=== PATIENT | female | born 1985 | race Caucasian/White ===

== ENCOUNTER → 2017-07-31 09:59 | Outpatient (CLI) | payer MEDICAID, SELFPAY ==
[2017-07-31 11:05] LABS: Protein, Urine (Random) 18.2 mg/dL (<11.9)
[2017-07-31 12:34] LABS: Hematocrit 35.3 % (37-47); Hemoglobin 12.1 g/dl (12.0-15.0); Mean Corp Hgb Conc 34.3 g/gl (32-36); Mean Corpuscular Hgb 30.2 pg (27.0-32.0); Mean Platelet Vol. 9.9 fl (6.2-12.0); Platelet Count 388 K/mm3 (150-450); RBC Distribution Width CV 13.6 % (11.6-14.6); RBC Distribution Width SD 42.2 fl (35.1-43.9); Red Blood Count 4.01 M/mm3 (4.2-5.4); White Blood Count 12.8 K/mm3 (4.4-11.0)
[2017-07-31 12:40] LABS: Scan Indicated on CBC? Y/N NO
[2017-07-31 12:48] LABS: ALB/GLOB Ratio 0.6 RATIO (0.9-2.4); AST(SGOT) 9 U/L (15-37); Alanine Aminotransfer ALT/SGPT 13 U/L (13-56); Albumin, Serum 2.9 g/dL (3.2-5.0); Alkaline Phosphatase 92 U/L (45-117); Anion Gap 9 (5-15); BUN 7 mg/dL (7-18); BUN/Creat Ratio 18.2 RATIO (10-20); Calcium,Total 8.5 mg/dL (8.5-10.1); Chloride 104 mmol/L (98-107); Creatinine, Serum 0.38 mg/dL (0.55-1.02); EST Glomerular Filtration Rate 204 mL/min (>60); Est Glom Filt Rate - Afr Amer 247 mL/min (>60); Globulin 4.5 g/dL (2.2-4.2); Glucose 83 mg/dL (70-110); Protein, Total 7.4 g/dL (6.4-8.2); Sodium Level 136 mmol/L (136-145); Uric Acid 3.6 mg/dL (2.6-6.0)
== END ==
PROVIDERS: Visit Provider Obstetrics & Gynecology
DX: Z34.82 Encounter for supervision of other normal pregnancy, second trimester (principal)
CPT/HCPCS: 36415; 80053; 82570; 84156; 84550; 85027

== ENCOUNTER → 2017-08-07 13:27 | Outpatient (CLI) | payer MEDICAID, SELFPAY ==
[2017-08-07 15:51] LABS: Hematocrit 35.7 % (37-47); Hemoglobin 12.1 g/dl (12.0-15.0); Mean Corp Hgb Conc 33.9 g/gl (32-36); Mean Corpuscular Hgb 29.9 pg (27.0-32.0); Mean Corpuscular Volume 88.1 fL (81-99); Mean Platelet Vol. 9.7 fl (6.2-12.0); Platelet Count 401 K/mm3 (150-450); RBC Distribution Width CV 13.4 % (11.6-14.6); RBC Distribution Width SD 42.4 fl (35.1-43.9); Red Blood Count 4.05 M/mm3 (4.2-5.4); White Blood Count 13.1 K/mm3 (4.4-11.0)
[2017-08-07 15:52] LABS: Scan Indicated on CBC? Y/N NO
[2017-08-07 16:04] LABS: ALB/GLOB Ratio 0.6 RATIO (0.9-2.4); AST(SGOT) 9 U/L (15-37); Alanine Aminotransfer ALT/SGPT 12 U/L (13-56); Albumin, Serum 2.9 g/dL (3.2-5.0); Alkaline Phosphatase 95 U/L (45-117); Anion Gap 7 (5-15); BUN 8 mg/dL (7-18); BUN/Creat Ratio 16.2 RATIO (10-20); Calcium,Total 8.7 mg/dL (8.5-10.1); Chloride 106 mmol/L (98-107); Creatinine, Serum 0.49 mg/dL (0.55-1.02); EST Glomerular Filtration Rate 153 mL/min (>60); Est Glom Filt Rate - Afr Amer 185 mL/min (>60); Globulin 4.6 g/dL (2.2-4.2); Glucose 81 mg/dL (74-106); Potassium 4.1 mmol/L (3.5-5.1); Protein, Total 7.5 g/dL (6.4-8.2); Sodium Level 138 mmol/L (136-145); Uric Acid 3.6 mg/dL (2.6-6.0)
[2017-08-07 16:08] LABS: Protein, Urine (Random) 26.1 mg/dL (<11.9)
== END ==
PROVIDERS: Visit Provider Obstetrics & Gynecology
DX: O16.2 Unspecified maternal hypertension, second trimester (principal); Z3A.00 Weeks of gestation of pregnancy not specified
CPT/HCPCS: 80053; 82570; 84156; 84550; 85027

== ENCOUNTER → 2017-08-29 07:11 | Outpatient (CLI) | payer MEDICAID, SELFPAY ==
[2017-08-29 08:14] LABS: Glucose GTT-Gestation. Fasting 104 mg/dL (<105)
[2017-08-29 09:28] LABS: Glucose GTT-Gestational 1 Hr 195 mg/dL (<190)
[2017-08-29 11:03] LABS: Glucose GTT-Gestational 2 Hr 157 mg/dL (<165)
[2017-08-29 12:08] LABS: Glucose GTT-Gestational 3 Hr 124 L (<145)
== END ==
PROVIDERS: Family Provider Family Medicine; PCP Family Medicine; Visit Provider Obstetrics & Gynecology
DX: Z34.83 Encounter for supervision of other normal pregnancy, third trimester (principal)
CPT/HCPCS: 36415; 82951; 82952

== ENCOUNTER → 2017-08-29 16:17 | Outpatient (CLI) | payer MEDICAID, SELFPAY ==
[2017-08-29 17:43] LABS: Hematocrit 32.8 % (37-47); Mean Corp Hgb Conc 33.5 g/gl (32-36); Mean Corpuscular Hgb 29.6 pg (27.0-32.0); Mean Corpuscular Volume 88.2 fL (81-99); Mean Platelet Vol. 9.3 fl (6.2-12.0); Platelet Count 376 K/mm3 (150-450); RBC Distribution Width CV 13.6 % (11.6-14.6); RBC Distribution Width SD 43.6 fl (35.1-43.9); Red Blood Count 3.72 M/mm3 (4.2-5.4); Scan Indicated on CBC? Y/N NO; White Blood Count 11.8 K/mm3 (4.4-11.0)
[2017-08-29 17:56] LABS: ALB/GLOB Ratio 0.6 RATIO (0.9-2.4); AST(SGOT) 7 U/L (15-37); Alanine Aminotransfer ALT/SGPT 13 U/L (13-56); Albumin, Serum 2.6 g/dL (3.2-5.0); Alkaline Phosphatase 94 U/L (45-117); Anion Gap 10 (5-15); BUN 10 mg/dL (7-18); BUN/Creat Ratio 17.8 RATIO (10-20); Calcium,Total 8.6 mg/dL (8.5-10.1); Chloride 107 mmol/L (98-107); Creatinine, Serum 0.56 mg/dL (0.55-1.02); EST Glomerular Filtration Rate 132 mL/min (>60); Est Glom Filt Rate - Afr Amer 159 mL/min (>60); Globulin 4.3 g/dL (2.2-4.2); Glucose 132 mg/dL (74-106); Potassium 4.1 mmol/L (3.5-5.1); Protein, Total 6.9 g/dL (6.4-8.2); Sodium Level 139 mmol/L (136-145); Uric Acid 3.9 mg/dL (2.6-6.0)
[2017-08-29 18:02] LABS: Protein, Urine (Random) 26.7 mg/dL (<11.9)
== END ==
PROVIDERS: Visit Provider Obstetrics & Gynecology
DX: O13.3 Gestational [pregnancy-induced] hypertension without significant proteinuria, third trimester (principal); Z3A.00 Weeks of gestation of pregnancy not specified
CPT/HCPCS: 36415; 80053; 82570; 82951; 82952; 84156; 84550; 85027

== ENCOUNTER 2017-09-11 10:15 | Outpatient (CLI) | payer MEDICAID, SELFPAY ==
[2017-09-11 10:35] VITALS: BMI 40.5
--- NOTE | 2017-09-12 18:13 | OB.TRI.NOTE ---
History of Present Illness Date of Service: 09/11/17 Was patient seen by the physician?: No Reason For Visit: NST Date of Service: 09/11/17 Final MICHAEL: 11/09/17 Final MICHAEL Source: US <20 weeks Gestational age: 31 Weeks and 4 Days History of Present Illness: 32yo for scheduled NST for h/o chronic hypertension Home Medications Medication Instructions Recorded NIFEdipine [Procardia XL] 90 mg PO DAILY 09/11/17 Pnv No.122/Iron/Folic Acid 1 each PO 09/11/17 [ Multi Tablet] Sertraline HCl [Zoloft] 09/11/17 Allergies amoxicillin [Amoxicillin] Allergy (Verified 09/11/17 10:44) Rash erythromycin base [Erythromycin Base] Allergy (Verified 09/11/17 10:44) Rash Penicillins Allergy (Verified 09/11/17 10:44) Rash - Pertinent Past Medical History Pertinent Past Medical History: Obesity Chronic HTN NST - FHR Rate Baby A Baseline: 130 Variability:: Moderate Accelerations:: 15 x 15 Decelerations:: None NST Reactive:: Yes FHR Category:: Category I Uterine Activity:: 0/10 Impression/Plan 32yo with chronic HTN @ 31 5/7wga, Cat I FHR -d/c home
== END 2017-09-11 11:20 | disposition home or self-care (01) ==
LOC: WPOUT 10:26 → WP 10:28
PROVIDERS: Family Provider Family Medicine; PCP Family Medicine; Visit Provider Obstetrics & Gynecology
DX: O10.913 Unspecified pre-existing hypertension complicating pregnancy, third trimester (principal); Z3A.31 31 weeks gestation of pregnancy
CPT/HCPCS: 59025

== ENCOUNTER → 2017-09-28 13:13 | Outpatient (CLI) | payer MEDICAID, SELFPAY ==
[2017-09-28 13:50] LABS: Hematocrit 35.4 % (37-47); Hemoglobin 11.7 g/dl (12.0-15.0); Mean Corp Hgb Conc 33.1 g/gl (32-36); Mean Corpuscular Hgb 29.3 pg (27.0-32.0); Mean Corpuscular Volume 88.5 fL (81-99); Mean Platelet Vol. 9.7 fl (6.2-12.0); Platelet Count 381 K/mm3 (150-450); RBC Distribution Width CV 13.9 % (11.6-14.6); RBC Distribution Width SD 43.9 fl (35.1-43.9); Scan Indicated on CBC? Y/N NO; White Blood Count 11.7 K/mm3 (4.4-11.0)
[2017-09-28 14:05] LABS: ALB/GLOB Ratio 0.6 RATIO (0.9-2.4); AST(SGOT) 9 U/L (15-37); Alanine Aminotransfer ALT/SGPT 12 U/L (13-56); Albumin, Serum 2.6 g/dL (3.2-5.0); Alkaline Phosphatase 116 U/L (45-117); Anion Gap 8 (5-15); BUN 10 mg/dL (7-18); Calcium,Total 8.8 mg/dL (8.5-10.1); Chloride 104 mmol/L (98-107); Creatinine, Serum 0.42 mg/dL (0.55-1.02); EST Glomerular Filtration Rate 186 mL/min (>60); Est Glom Filt Rate - Afr Amer 225 mL/min (>60); Globulin 4.6 g/dL (2.2-4.2); Glucose 88 mg/dL (74-106); Protein, Total 7.2 g/dL (6.4-8.2); Sodium Level 136 mmol/L (136-145); Uric Acid 4.1 mg/dL (2.6-6.0)
[2017-09-28 14:09] LABS: Protein, Urine (Random) 29.5 mg/dL (<11.9)
== END ==
PROVIDERS: Family Provider Family Medicine; PCP Family Medicine; Visit Provider Obstetrics & Gynecology
DX: O13.3 Gestational [pregnancy-induced] hypertension without significant proteinuria, third trimester (principal); Z3A.00 Weeks of gestation of pregnancy not specified
CPT/HCPCS: 36415; 80053; 82570; 84156; 84550; 85027; 87086; 87088

== ENCOUNTER 2017-10-12 14:37 | Outpatient (CLI) | payer MEDICAID, SELFPAY ==
[2017-10-12 15:10] LABS: ROM Internal Control Test YES-OK TO RESULT pt. (Internal QC); ROM Patient Test Negative (Negative)
[2017-10-12 15:45] LABS: Hematocrit 34.9 % (37-47); Hemoglobin 11.5 g/dl (12.0-15.0); Mean Corpuscular Volume 87.9 fL (81-99); Mean Platelet Vol. 9.4 fl (6.2-12.0); Platelet Count 408 K/mm3 (150-450); RBC Distribution Width CV 13.9 % (11.6-14.6); RBC Distribution Width SD 43.9 fl (35.1-43.9); Red Blood Count 3.97 M/mm3 (4.2-5.4); White Blood Count 11.6 K/mm3 (4.4-11.0)
[2017-10-12 15:46] VITALS: BMI 42.3
[2017-10-12 15:46] LABS: Scan Indicated on CBC? Y/N NO
[2017-10-12 16:00] LABS: AST(SGOT) 8 U/L (15-37); Alanine Aminotransfer ALT/SGPT 9 U/L (13-56); EST Glomerular Filtration Rate 150 mL/min (>60); Est Glom Filt Rate - Afr Amer 181 mL/min (>60); Estimated Creatinine Clearance 149.81 ml/min; Uric Acid 3.9 mg/dL (2.6-6.0)
[2017-10-12 16:01] LABS: International Normalized Ratio 1.1; Prothrombin Time (Protime)PT. 13.8 SECONDS (11.7-14.9)
[2017-10-12 16:01] LABS: Group B Strep DNA By PCR POSITIVE (Negative); Probe Check PASS
[2017-10-12 16:02] LABS: Partial Thromboplast Time 29.9 Seconds (24.1-36.2)
[2017-10-12 16:53] LABS: Protein, Urine (Random) 16.1 mg/dL (<11.9); Protein:Creat Ratio 202 mg/g CRE (0-200)
[2017-10-12] MEDS: Labetalol 200 MG Tablet 400 MG PO (18:17)
[2017-10-12] MEDS: Betamethasone/Betamethasone 30 MG/5 ML Vial 12 MG IM (18:18)
--- NOTE | 2017-10-12 18:39 | OB.TRI.NOTE ---
History of Present Illness Date of Service: 10/12/17 Was patient seen by the physician?: Yes Reason For Visit: [facility] Final MICHAEL: 11/09/17 Final MICHAEL Source: US <20 weeks Gestational age: 36 Weeks and 0 Days History of Present Illness: 32yo at 36wga with h/o chronic hypertension and obesity, sent from the office for elevated BP. She reports mild headache and notes this occurs with elevated BPs. Denies vision changes, RUQ or abdominal pain. + FM, no vaginal bleeding. + cramping. She reported leaking of fluid in office and ROM plus was sent. Home Medications Medication Instructions Recorded NIFEdipine [Procardia XL] 90 mg PO DAILY 09/11/17 Pnv No.122/Iron/Folic Acid 1 each PO DAILY 09/11/17 [ Multi Tablet] Sertraline HCl [Zoloft] 75 mg PO DAILY 09/11/17 Allergies amoxicillin [Amoxicillin] Allergy (Verified 10/12/17 15:45) Rash erythromycin base [Erythromycin Base] Allergy (Verified 10/12/17 15:45) Rash Penicillins Allergy (Verified 10/12/17 15:45) Rash - Pertinent Past Medical History Pertinent Past Medical History: chronic HTN Obesity Physical Exam General: Alert, Oriented x3, Cooperative, No apparent distress Cardiovascular: Regular rate, Regular Rhythm Lungs: Normal air movement Abdomen: Soft, Non Tender, Non-Distended, Gravid Extremities:: No edema, Other - +2 b/l DTRs, no clonus Estimated gestational size: Appropriate for gestational size Presentation: Breech NST - FHR Rate Baby A Baseline: 135 Variability:: Moderate Accelerations:: 15 x 15 Decelerations:: None NST Reactive:: Yes FHR Category:: Category I Uterine Activity:: irritability Impression/Plan 32yo at 36wga with chronic HTN -Labs reviewed and not c/w preeclampsia - suspect worsening HTN. -Increase Labetalol to 400mg PO bid -Start BMZ course for FLM should there be evidence of preeclampsia -APAP prn
[2017-10-12 18:50] LABS: Chlamydia Trachomatis by PCR Negative (Negative); Neisserai gonorrhoeae by PCR Negative (Negative); Probe Check PASS; Sample Adequacy Control PASS; Specimen Processing Control PASS
--- NOTE | 2017-10-12 18:56 | OB.TRI.HP_ITS ---
History of Present Illness Date of Service: 10/12/17 Was patient seen by the physician?: Yes Reason For Visit: [facility] Final MICHAEL: 11/09/17 Final MICHAEL Source: US <20 weeks Gestational age: 36 Weeks and 0 Days History of Present Illness: 32yo at 36wga with h/o chronic hypertension and obesity, sent from the office for elevated BP. She reports mild headache and notes this occurs with elevated BPs. Denies vision changes, RUQ or abdominal pain. + FM, no vaginal bleeding. + cramping. She reported leaking of fluid in office and ROM plus was sent. Home Medications Medication Instructions Recorded NIFEdipine [Procardia XL] 90 mg PO DAILY 09/11/17 Pnv No.122/Iron/Folic Acid 1 each PO DAILY 09/11/17 [ Multi Tablet] Sertraline HCl [Zoloft] 75 mg PO DAILY 09/11/17 Allergies amoxicillin [Amoxicillin] Allergy (Verified 10/12/17 15:45) Rash erythromycin base [Erythromycin Base] Allergy (Verified 10/12/17 15:45) Rash Penicillins Allergy (Verified 10/12/17 15:45) Rash - Pertinent Past Medical History Pertinent Past Medical History: chronic HTN Obesity Physical Exam General: Alert, Oriented x3, Cooperative, No apparent distress Cardiovascular: Regular rate, Regular Rhythm Lungs: Normal air movement Abdomen: Soft, Non Tender, Non-Distended, Gravid Extremities:: No edema, Other - +2 b/l DTRs, no clonus Estimated gestational size: Appropriate for gestational size Presentation: Breech NST - FHR Rate Baby A Baseline: 135 Variability:: Moderate Accelerations:: 15 x 15 Decelerations:: None NST Reactive:: Yes FHR Category:: Category I Uterine Activity:: irritability Impression/Plan 32yo at 36wga with chronic HTN -Labs reviewed and not c/w preeclampsia - suspect worsening HTN. -Increase Labetalol to 400mg PO bid -Start BMZ course for FLM should there be evidence of preeclampsia -APAP prn
[2017-10-12] MEDS: 0.9% Saline Lock 10 ML Syringe IV (19:00)
[2017-10-12] MEDS: Acetaminophen 325 MG Tablet 650 MG PO (21:40)
[2017-10-13] MEDS: Acetaminophen 325 MG Tablet 650 MG PO (05:42)
[2017-10-13] MEDS: 0.9% Saline Lock 10 ML Syringe IV (05:43)
[2017-10-13] MEDS: Labetalol 200 MG Tablet PO (06:16)
--- NOTE | 2017-10-13 07:58 | OB.TRI.PN ---
Progress Notes Date of Service: 10/13/17 Progress Note: Denies headache, vision changes or abdominal pain. She has intermittent cramping again. Denies contractions. Fetus is active. No leaking of fluid or vaginal bleeding. AVSS, BPs reviewed and at target given h/o chronic hypertension. NST reactive this am, Cat I. Will d/c home this am with plan for Labetalol 200mg PO tid, continue Nifedipine XL. Return this evening for second dose of betamethasone. Si/sx preeclampsia reviewed. Plan to f/u in office early next week, pt to continue home BP monitoring.
--- NOTE | 2017-10-13 08:03 | PCM.DC ---
- Discharge Diagnoses Current Active Problems: Chronic hypertension Reason(s) for Visit for Discharge Instructions: Chronic hypertension exacerbation in You will use the following diet at home:: No restrictions Your food should be the consistency of: Regular Discharge Activity: Return to Normal Activity Call your doctor if you observe: - - Persistent headache, vision changes, Right upper abdominal pain Allergies/Adverse Reactions: Allergies amoxicillin [Amoxicillin] Allergy (Verified 10/12/17 15:45) Rash erythromycin base [Erythromycin Base] Allergy (Verified 10/12/17 15:45) Rash Penicillins Allergy (Verified 10/12/17 15:45) Rash Medications to take at Discharge NIFEdipine [Procardia XL] 90 mg PO DAILY 09/11/17 Pnv No.122/Iron/Folic Acid [ Multi Tablet] 1 each PO DAILY 09/11/17 Sertraline HCl [Zoloft] 75 mg PO DAILY 09/11/17 Labetalol [Trandate ([place])] 200 mg PO TID #42 tab 10/13/17 The following prescriptions were given: Labetalol [Trandate ([place])] 200 mg PO TID #42 tab Primary Care Physician: Care Physician,No Primary [Primary Care Provider] - Please Follow Up With: Deysi Arredondo MD - NST and visit in afternoon When: 10/17/17
== END 2017-10-13 08:10 | disposition home or self-care (01) ==
LOC: LABSPEC 14:38 → WPOUT 14:57 → WP 18:48
PROVIDERS: Visit Provider Obstetrics & Gynecology
DX: O10.913 Unspecified pre-existing hypertension complicating pregnancy, third trimester (principal); O32.1XX0 Maternal care for breech presentation, not applicable or unspecified; Z3A.36 36 weeks gestation of pregnancy
CPT/HCPCS: 36415; 59025; 59050; 82565; 82570; 84112; 84156; 84450; 84460; 84550; 85027; 85610; 85730; 87491; 87591; 87653; 96372; 99218; A4216; G0378; J0702

== ENCOUNTER 2017-10-13 18:02 | Outpatient (CLI) | payer MEDICAID, SELFPAY ==
[2017-10-13 18:14] VITALS: BMI 42.3
[2017-10-13] MEDS: Betamethasone/Betamethasone 30 MG/5 ML Vial 12 MG IM (18:25)
== END 2017-10-13 18:30 | disposition home or self-care (01) ==
LOC: WPOUT 18:12 → WP 18:13
PROVIDERS: Visit Provider Obstetrics & Gynecology
DX: O13.3 Gestational [pregnancy-induced] hypertension without significant proteinuria, third trimester (principal); Z3A.36 36 weeks gestation of pregnancy
CPT/HCPCS: 96372; 99218; G0378; J0702

== ENCOUNTER 2017-10-17 14:20 | Inpatient (IN) | payer MEDICAID, SELFPAY ==
[2017-10-17] VITALS (17 sets, daily range): BP systolic 133–162; BP diastolic 68–100; PULSE 82–103; RESP 16–20; TEMP 35.7–36.4; O2SAT 90–99; BMI 42.1
[2017-10-17] MEDS: 0.9% Saline Lock 10 ML Syringe IV (12:50)
[2017-10-17] MEDS: Lactated Ringers 1,000 ML 50 ML IV (13:20)
[2017-10-17 13:23] LABS: Mucous, Urine 0 SEEN /hpf (<or=2+); White Blood Cells 0 SEEN /hpf (0-5)
[2017-10-17] MEDS: Labetalol 100 MG/20 ML Vial 10 MG IV (13:25)
[2017-10-17 13:27] LABS: Hematocrit 35.8 % (37-47); Mean Corp Hgb Conc 33.5 g/gl (32-36); Mean Corpuscular Hgb 29.4 pg (27.0-32.0); Mean Corpuscular Volume 87.7 fL (81-99); Mean Platelet Vol. 9.6 fl (6.2-12.0); Platelet Count 413 K/mm3 (150-450); RBC Distribution Width SD 43.8 fl (35.1-43.9); Red Blood Count 4.08 M/mm3 (4.2-5.4); Scan Indicated on CBC? Y/N NO; White Blood Count 13.2 K/mm3 (4.4-11.0)
[2017-10-17 13:29] LABS: Color, Urine Yellow (Yellow); Glucose, Dipstick Normal (Normal); Ketone-Dipstick Negative (Negative); Leukocyte Esterase-Dipstick Negative /ul (Negative); Nitrite-Dipstick Negative (Negative); Occult Blood-Urine 10 /ul (Negative); Protein-Dipstick 15 mg/dl (Negative); Specific Gravity, Urine 1.015 (1.002-1.030); Urine Bilirubin Dipstick Negative (Negative); Urine Clarity Cloudy (Clear); Urine Urobilinogen Normal (Normal)
[2017-10-17 13:35] LABS: Bacteria 1+ /hpf (None Seen); Red Blood Cells-Urine 0-5 SEEN /hpf (0-5); Squamous Epithelial Cells - UA 5-10 SEEN /hpf (5-10)
[2017-10-17] MEDS: NIFEdipine 90 MG Tablet PO (13:35)
[2017-10-17 13:40] LABS: Protein, Urine (Random) 27.8 mg/dL (<11.9); Protein:Creat Ratio 447 mg/g CRE (0-200)
[2017-10-17 13:43] LABS: ALB/GLOB Ratio 0.6 RATIO (0.9-2.4); AST(SGOT) 10 U/L (15-37); Alanine Aminotransfer ALT/SGPT 14 U/L (13-56); Albumin, Serum 2.6 g/dL (3.2-5.0); Alkaline Phosphatase 113 U/L (45-117); Anion Gap 8 (5-15); BUN 9 mg/dL (7-18); BUN/Creat Ratio 18.6 RATIO (10-20); Calcium,Total 8.5 mg/dL (8.5-10.1); Chloride 105 mmol/L (98-107); Creatinine, Serum 0.48 mg/dL (0.55-1.02); EST Glomerular Filtration Rate 157 mL/min (>60); Est Glom Filt Rate - Afr Amer 189 mL/min (>60); Estimated Creatinine Clearance 156.06 ml/min; Globulin 4.4 g/dL (2.2-4.2); Glucose 77 mg/dL (74-106); Potassium 4.2 mmol/L (3.5-5.1); Sodium Level 139 mmol/L (136-145); Uric Acid 4.2 mg/dL (2.6-6.0)
[2017-10-17] MEDS: Labetalol 200 MG Tablet PO (13:51)
[2017-10-17] MEDS: Acetaminophen 325 MG Tablet 650 MG PO (14:59)
[2017-10-17] MEDS: Magnesium Sulfate 20 GM/500 ML BAG IV (15:20)
[2017-10-17] MEDS: Lactated Ringers 1,000 ML 999 ML IV (15:30)
[2017-10-17] MEDS: Sodium Citrate/Citric Acid 30 ML UDC PO (16:05)
[2017-10-17] MEDS: Clindamycin 900 MG/50 ML BAG 75 MG IV (16:25)
[2017-10-17] MEDS: Oxytocin 30 units/NS 500 ml 30 UNITS/500 ML IV.SOLN 167 UNITS IV (16:57)
[2017-10-17] MEDS: Ondansetron 4 MG/2 ML Vial IV (17:00)
[2017-10-17] MEDS: Lactated Ringers 1,000 ML 100 ML IV ×2 (18:00→21:29)
--- NOTE | 2017-10-17 18:04 | PCM.IMED.CSR ---
- Problem List (1) 36 weeks gestation of Status: Acute (2) Breech presentation Status: Acute Qualifiers: Fetus number: single or unspecified fetus Qualified Code(s): O32.1XX0 - Maternal care for breech presentation, not applicable or unspecified (3) Chronic hypertension with superimposed preeclampsia Status: Acute (4) Sterilization Status: Acute U-Dxymujg-Ilcdwllra PostOp Date of Procedure: 10/17/17 Primary Surgeon/Physician: Deysi Arredondo, cross cut saw operator: Gage Sharpe Pre-op Diagnosis: Breech, - - Chronic hypertension with superimposed preeclampsia Post-Op Diagnosis: Breech, - - Chronic hypertension with superimposed preeclampsia Surgery/Procedure Performed: Primary low transverse Section, - - Bilateral tubal ligation Description of Surgical Findings:: Normal tubes and ovaries with abundant filmy adhesions suggesting prior PID Estimated Blood Loss: 700 mL Specimens Removed: placenta, tubes Drain: Hernandez to straight drain Type of Anesthesia: Spinal - Admit VTE Documentation VTE Present on Admission: No VTE Mechan Device Prophylaxis: SCD's VTE Pharm Prophylaxis ordered?: No
--- NOTE | 2017-10-17 18:06 | PLAC_PTH ---
PATIENT: TAMEKA HODGE LOC: WP U#:[id number] AGE/SX: 32/F ROOM: WP009 RE10/17/[address]: Dr. Deysi Emanuel MD : 1985 BED: 1 DIS: 10/21/2017 SPEC #: [id number] RECD: 10/17/17 22:24 STATUS: MARIA FERNANDA RETramaine #: [id number] GEORGES: 10/17/17 18:[address]: Deysi Stein DEPT: SURGICAL PATHOLOGY RECD BY: Douglas Oconnor ENTERED: 10/18/17 09:25 SP TYPE: PLACENTA OTHR DR: No Primary Care Phys Tissues: A - Placenta, NOS B - Fallopian tube Procedures: Surgery Specimen Level II Surgery Specimen Level V HEADER OPERATION: Primary section with tubal ligation PRE-OP DIAGNOSIS: chronic hypertension with superimposed preeclampsia and tubal ligation TISSUE SUBMITTED: A. Placenta, B. Fallopian tubes MICROSCOPIC DIAGNOSIS A. Hamilton placenta (758 gm): Umbilical cord ? trivascular with early acute funisitis. Placental disc ? mild Jessica-Gerald change and intervillous congestion. B. Right and left fallopian tubes, salpingectomies: Complete segments of fallopian tubes with no pathologic change. AM:noemi 10/20/17 MICROSCOPIC DESCRIPTION Slides are reviewed. GROSS DESCRIPTION A - SPECIMEN: PLACENTA / CLINICAL INFORMATION: A. Weight: 3.167 kg B. Gestational Age: 36 weeks C. Sex: Male PLACENTAL WEIGHT (POST FIXATION): 598 gm PLACENTAL DIMENSIONS: 15 x 15 x 4.5 cm PLACENTAL SHAPE: Usual ovoid PLACENTAL WEIGHT FOR GESTATIONAL AGE: Within 10-99th percentile MEMBRANES - Present A. Insertion: Marginal B. Site of rupture from edge: 4 cm from edge of placental disc C. Color of membrane: Lainez-solis D. Abnormalities: None UMBILICAL CORD - Present A. Color: Lainez-solis B. Insertion: Paracentral C. Length: 29 cm D. Diameter: 1.5 cm E. Number of vessels: Three F. Abnormalities: None PLACENTAL DISC - Present A. Color of surface: Lainez-solis B. surface abnormalities: None C. Maternal cotyledons: Intact with minimal tears D. Attached retro placental clot: No clot E. Cut surface: Dark red and spongy F. Lesions: None G. Separate clot: Absent SECTIONS SUBMITTED: 1. Membrane roll 2. Cord, maternal end 3. Cord, end 4. Placental disc, and maternal surfaces 5. Placental disc, and maternal surfaces 6. Placental disc, and maternal surfaces SJ:noemi 10/19/17 B - Received is one container labeled with the patient's name and designated bilateral fallopian tubes. The specimen consists of two tubular pieces of lainez soft tissue consistent with portion of fallopian tubes. The right tube measures 2 cm in length and 0.5 cm in diameter and the left tube measures 2 cm in length and 0.7 cm in diameter. Both pieces are submitted in one cassette and they will be sectioned at the time of embedding. The left tube is inked black. The specimen will be submitted after overnight fixation along with placenta sections. / SJ:noemi 10/18/17 TC:2 CPT: 70771, 14967 x2
--- NOTE | 2017-10-17 18:09 | OP.PN_ITS ---
- Problem List (1) 36 weeks gestation of Status: Acute (2) Breech presentation Status: Acute Qualifiers: Fetus number: single or unspecified fetus Qualified Code(s): O32.1XX0 - Maternal care for breech presentation, not applicable or unspecified (3) Chronic hypertension with superimposed preeclampsia Status: Acute (4) Sterilization Status: Acute X-Tbjmnpa-Lfuommuat PostOp Date of Procedure: 10/17/17 Primary Surgeon/Physician: Deysi Arredondo, cooler deliverer: Gage Sharpe Pre-op Diagnosis: Breech, - - Chronic hypertension with superimposed preeclampsia Post-Op Diagnosis: Breech, - - Chronic hypertension with superimposed preeclampsia Surgery/Procedure Performed: Primary low transverse Section, - - Bilateral tubal ligation Description of Surgical Findings:: Normal tubes and ovaries with abundant filmy adhesions suggesting prior PID Estimated Blood Loss: 700 mL Specimens Removed: placenta, tubes Drain: Hernandez to straight drain Type of Anesthesia: Spinal - Admit VTE Documentation VTE Present on Admission: No VTE Mechan Device Prophylaxis: SCD's VTE Pharm Prophylaxis ordered?: No
--- NOTE | 2017-10-17 18:11 | PCM.OB.CSR ---
- Problem List (1) 36 weeks gestation of Status: Acute (2) Breech presentation Status: Acute Qualifiers: Fetus number: single or unspecified fetus Qualified Code(s): O32.1XX0 - Maternal care for breech presentation, not applicable or unspecified (3) Chronic hypertension with superimposed preeclampsia Status: Acute (4) Sterilization Status: Acute Delivery Classification: Scheduled Final MICHAEL: 11/08/17 Gestational age: 36 Weeks and 6 Days doctor who attended delivery (if requested by OB): Maki Evans Indications: The patient was taken to the operating room and spinal analgesia was administered. She is placed in a dorsal supine position with left lateral tilt. The perineum and abdomen were prepped and draped in sterile fashion. And the spinal was found to be adequate. A Pfannenstiel incision was made using a scalpel and brought down to incise the subcutaneous tissue and rectus fascia at the midline. Subcutaneous tissue was bluntly dissected off the fascia laterally. The fascial incision was dissected laterally and cephalad using curved [place] scissors. The superior leaflet of the rectus fascia was grasped using [place] clamps and bluntly dissected and sharply dissected from the underlying rectus muscle. In a similar fashion the inferior rectus fascia was dissected from the underlying muscle. The rectus muscles were bluntly at the midline. The peritoneum was identified and entered [sharply]. The bladder blade was placed into the abdomen and the vesicouterine peritoneal fold identified. The fold was incised and a bladder flap created. Bladder blade was then repositioned to the abdomen. A low transverse hysterotomy was made using the [Metzenbaum scissors] to level of the membranes. The hysterotomy was extended bluntly cephalad and caudad. The membranes were then ruptured revealing clear fluid. The breech elevated and brought to the level of the hysterotomy. Gentle bidirectional rotation was utilized to deliver the infant to the level of the shoulders at which time the right than left arms was swept through the hysterotomy. The head delivered spontaneously revealing vigorous [male] infant. The cord was doubly clamped and cut after 30 seconds. The infant was passed to awaiting [nursery personnel]. The placenta was [expressed] from the uterus and appeared intact on inspection. The uterus was cleared of debris. The hysterotomy was then repaired using 0 Vicryl running lock suture. The uterus was exteriorized. There were filmy adhesions over the tubes and ovaries bilaterally. Adhesiolysis was performed. The right ampullary tube was isolated and a defect created in the mesosalpinx. The proximal and distal portion of the tubes were tied using 0 plain gut at the defect. An approximately 2cm of intervening tube was excised. The tubal ostia were visualized. In similar fashion, a [place] tubal ligation was performed on the left. The uterus and adnexae were returned to the abdomen. Additional figure of eight 0 Vicryl suture was placed along the hysterotomy for additional hemostasis with hemostasis attained. The bladder blade was removed. The anterior cul-de-sac was cleared of debris. The peritoneum and rectus muscles were reapproximated using 2-0 Vicryl running suture. The rectus fascia was closed using 0 Vicryl running suture. The subcutaneous tissue was sponge irrigated and small capillary bleeding controlled using the Bovie device. The subcutaneous tissue was reapproximated using two layers of 2-0 Vicryl. The skin was closed using 4-0 Monocryl subcuticularly by the DIGITAL FORENSICS EXAMINER under my supervision. I was present for the entire procedure. This was followed by Tyler and a Mepilex occlusive dressing was placed over the incision. The fundus was firm. The patient was then transferred to the recovery room without complication. Sponge, instrument, and needle counts were correct ?2. Description of Procedure: Normal tubes and ovaries with abundant filmy adhesions suggesting prior PID Specimen(s) sent to pathology: placenta, tubes Drain: Hernandez to straight drain Fluids Replaced: 1550 ml Cord Entanglement: None Cord Vessel Description: 3 Vessels Esitmated Blood Loss (ml): 700 Gender: Male (1 minute): 7 (5 minute): 9 Delayed cord clamping: Yes Pre-op Antibiotic Given: - - Clindamycin 900mg IV, Gentamicina 5mg/kg (IBW) IV Pt instructed on risks of surgery: Bleeding, Anesthesia Risks, Infection, Permanency, Failure Rate of 1 to 2%, Injury to surrounding structure(s) including bowel and bladder, Availability of other non-permanent control options Complications: None - Admit VTE Documentation VTE Present on Admission: No VTE Mechan Device Prophylaxis: SCD's VTE Pharm Prophylaxis ordered?: No
--- NOTE | 2017-10-17 18:37 | NURSING ---
NC with 2L oxygen to use while resting as pulse ox 96-98% while awake
[2017-10-17] MEDS: Ketorolac 30 MG/ML Syringe IV (18:41)
--- NOTE | 2017-10-17 22:26 | PCM.PN.BLA ---
Progress Note Last few BPs more WNL. Pt very concerned re taking the 200 mg labetolol tid. Will observe BPs, and decrease Labetolol to 100 mg po tid for now.
[2017-10-17] MEDS: Labetalol 100 MG Tablet PO (23:13)
[2017-10-18] VITALS (21 sets, daily range): BP systolic 114–147; BP diastolic 57–87; PULSE 84–97; RESP 16–18; TEMP 35.8–36.6; O2SAT 92–98
[2017-10-18] MEDS: Ketorolac 30 MG/ML Syringe IV ×4 (00:06→18:53)
[2017-10-18] MEDS: Magnesium Sulfate 20 GM/500 ML BAG IV ×2 (01:30→11:21)
--- NOTE | 2017-10-18 01:41 | NURSING ---
IV Magnesium Sulfate d/c'd in error after pt transferred to . Confirmed with Dr Okeefe that Magnesium Sulfate infusion 2gm/hour to continue. Order placed. Magnesium Sulfate 20 gm in 500cc Dawson jimenez verified.
[2017-10-18] MEDS: Ondansetron 4 MG/2 ML Vial IV (04:16)
[2017-10-18] MEDS: Labetalol 100 MG Tablet PO ×3 (05:38→21:39)
--- NOTE | 2017-10-18 09:28 | PN.OBGYN_ITS ---
Patient Problems: Active and Suspected Problems 36 weeks gestation of (Acute) Breech presentation (Acute) Chronic hypertension with superimposed preeclampsia (Acute) Sterilization (Acute) Subjective: Has mild headache, denies nausea or vomiting or abdominal pain. Incision is sore. Passing flatus. Objective: AVSS - Physical Exam General: Alert, Oriented x3, Cooperative, No apparent distress HEENT: Atraumatic, Normocephalic Lungs: Clear to auscultation, Normal air movement Cardiovascular: Regular rate, Regular Rhythm, Normal S1, Normal S2 Abdomen: Bowel Sounds Present, Soft, Non Tender, Non-Distended, - - Difficulty assessing fundus due to body habitus, incisional dressing c/d/i, scant lochia Extremities: No edema, No Calf Tenderness Neurological: Deep Tendon Reflexes 2+/4 and Symmetrical Psych/Mental Status: Normal Affect, Appropriate, Alert and oriented to time, place, person, mood and affect Vital Signs Temp Pulse Resp BP Pulse Ox 97.2 F L 94 18 121/67 H 96 10/18/17 07:20 10/18/17 07:20 10/18/17 07:20 10/18/17 07:20 10/18/17 07:20 Oxygen Delivery Method Room Air Weight: 118.5 kg Body Mass Index (BMI) 42.1 Intake and Output for Last 24 Hours 10/16/17 10/17/17 10/18/17 23:59 23:59 23:59 Intake Total 5622 / 5622 922 / 922 Output Total 2700 / 2700 1025 / 1025 Balance 2922 / 2922 -103 / -103 Laboratory Tests Past 24 Hrs 10/17/17 10/17/17 10/17/17 12:50 12:50 12:50 WBC 13.2 H RBC 4.08 L Hgb 12.0 Hct 35.8 L MCV 87.7 MCH 29.4 MCHC 33.5 RDW 14.0 RDW Differential 43.8 Plt Count 413 MPV 9.6 Sodium 139 Potassium 4.2 Chloride 105 Carbon Dioxide 26.0 Anion Gap 8 BUN 9 Creatinine 0.48 L Estim Creat Clear Calc 156.06 Est GFR (MDRD) Af Amer 189 Est GFR (MDRD) Non-Af 157 BUN/Creatinine Ratio 18.6 Glucose 77 Uric Acid 4.2 Calcium 8.5 Total Bilirubin 0.20 AST 10 L ALT 14 Alkaline Phosphatase 113 Total Protein 7.0 Albumin 2.6 L Globulin 4.4 H Albumin/Globulin Ratio 0.6 L Urine Color Yellow Urine Clarity Cloudy Urine pH 8.0 Ur Specific [place] 1.015 Urine Protein 15 H Urine Glucose (UA) Normal Urine Ketones Negative Urine Occult Blood 10 H Urine Nitrite Negative Urine Bilirubin Negative Urine Urobilinogen Normal Ur Leukocyte Esterase Negative Urine RBC 0-5 SEEN Urine WBC 0 SEEN Ur Squamous Epith Cells 5-10 SEEN Urine Bacteria 1+ Urine Mucus 0 SEEN U Random Total Protein Urine Creatinine Protein/Creatinin Ratio Blood Type Antibody Screen 10/17/17 10/17/17 12:50 12:50 WBC RBC Hgb Hct MCV MCH MCHC RDW RDW Differential Plt Count MPV Sodium Potassium Chloride Carbon Dioxide Anion Gap BUN Creatinine Estim Creat Clear Calc Est GFR (MDRD) Af Amer Est GFR (MDRD) Non-Af BUN/Creatinine Ratio Glucose Uric Acid Calcium Total Bilirubin AST ALT Alkaline Phosphatase Total Protein Albumin Globulin Albumin/Globulin Ratio Urine Color Urine Clarity Urine pH Ur Specific [place] Urine Protein Urine Glucose (UA) Urine Ketones Urine Occult Blood Urine Nitrite Urine Bilirubin Urine Urobilinogen Ur Leukocyte Esterase Urine RBC Urine WBC Ur Squamous Epith Cells Urine Bacteria Urine Mucus U Random Total Protein 27.8 H Urine Creatinine 62.20 Protein/Creatinin Ratio 447 H Blood Type A POSITIVE Antibody Screen NEGATIVE Medical Necessity - Tobacco Use Smoking Status: Former smoker Assessment/Plan Active and Suspected Problems 36 weeks gestation of (Acute) Breech presentation (Acute) Chronic hypertension with superimposed preeclampsia (Acute) Sterilization (Acute) 32yo POD#1 s/p PLTCS with BTL with chronic HTN, superimposed preeclampsia. -Rh positive, Rubella immune -CBC pending, CMP, uric acid -Headache persists, pt attributes this to not eating prior and just finished breakfast, will observe. BPs improved since delivery. Will d/c Nifedipine, continue Labetalol 100mg PO tid. -Reviewed events yesterday. Discussed with patient diagnosis of cHTN with superimposed preeclampsia and indication of magnesium for seizure prophylaxis. Pt diuresing however given headache, will continue magnesium to 24 hours. -Routine post-op care
[2017-10-18] MEDS: Sertraline 50 MG Tablet 75 MG PO (09:44)
[2017-10-18 09:58] LABS: Hematocrit 33.6 % (37-47); Hemoglobin 11.1 g/dl (12.0-15.0); Mean Corpuscular Hgb 28.8 pg (27.0-32.0); Mean Platelet Vol. 8.9 fl (6.2-12.0); Platelet Count 328 K/mm3 (150-450); RBC Distribution Width CV 14.3 % (11.6-14.6); RBC Distribution Width SD 44.9 fl (35.1-43.9); Red Blood Count 3.86 M/mm3 (4.2-5.4); White Blood Count 13.5 K/mm3 (4.4-11.0)
[2017-10-18 10:08] LABS: Scan Indicated on CBC? Y/N NO
[2017-10-18 10:29] LABS: ALB/GLOB Ratio 0.6 RATIO (0.9-2.4); AST(SGOT) 11 U/L (15-37); Alanine Aminotransfer ALT/SGPT 12 U/L (13-56); Albumin, Serum 2.3 g/dL (3.2-5.0); Alkaline Phosphatase 111 U/L (45-117); Anion Gap 11 (5-15); BUN 7 mg/dL (7-18); BUN/Creat Ratio 10.6 RATIO (10-20); Calcium,Total 7.5 mg/dL (8.5-10.1); Chloride 102 mmol/L (98-107); Creatinine, Serum 0.66 mg/dL (0.55-1.02); EST Glomerular Filtration Rate 109 mL/min (>60); Est Glom Filt Rate - Afr Amer 132 mL/min (>60); Glucose 148 mg/dL (74-106); Potassium 3.9 mmol/L (3.5-5.1); Protein, Total 6.3 g/dL (6.4-8.2); Sodium Level 137 mmol/L (136-145); Uric Acid 5.1 mg/dL (2.6-6.0)
[2017-10-18] MEDS: Prenatal Vits Tablet 1 TABLET PO (11:22)
[2017-10-18] MEDS: Enoxaparin 40 MG/0.4 ML Syringe SC (11:22)
[2017-10-18] MEDS: oxyCODONE 5 MG Tablet PO ×2 (17:11→21:39)
[2017-10-18] MEDS: 0.9% Saline Lock 10 ML Syringe IV (18:55)
[2017-10-18] MEDS: Senna/Docusate Sodium 1 Tablet PO (21:38)
--- NOTE | 2017-10-18 22:22 | NURSING ---
Patient assisted with placing a binder. Assisted patient up to BR, voided without difficulty. Pericare completed.
[2017-10-19] MEDS: Ketorolac 30 MG/ML Syringe IV ×3 (00:03→12:13)
[2017-10-19] MEDS: 0.9% Saline Lock 10 ML Syringe IV ×3 (00:04→12:14)
[2017-10-19 02:00] VITALS: BP 132/82; PULSE 88; RESP 17; TEMP 36.6
[2017-10-19] MEDS: oxyCODONE 5 MG Tablet PO ×4 (04:23→20:39)
[2017-10-19] MEDS: Labetalol 100 MG Tablet PO ×3 (06:49→22:10)
[2017-10-19 08:50] VITALS: BP 125/72; PULSE 80; RESP 18; TEMP 36.4; O2SAT 99
[2017-10-19] MEDS: Senna/Docusate Sodium 1 Tablet PO (08:52)
[2017-10-19] MEDS: Sertraline 50 MG Tablet 75 MG PO (10:46)
[2017-10-19] MEDS: Prenatal Vits Tablet 1 TABLET PO (12:14)
--- NOTE | 2017-10-19 12:39 | CASEMGMT ---
Social Work - Labor and Delivery Unit Assessment completed. Refer to documentation below for further details. Date of Referral: 10/17/2017 Time of Referral: 1823 Referred By: Dr. Arredondo Reason for Referral: Mental Health Date of Intervention: 10/19/2017 Time of Intervention: 1200 History obtained from: mother of baby (MOB) and medical record Household composition: MOB and 3 older children. MOBs mother has been staying with MOB for the last month, and will continue to stay for a short time in the period, providing support to MOB. Patient's parent/guardian status: MOB and reported father of baby (FOB) Blayne Ross are not currently together, were together from October to May 2017, and FOBs level of involvement at this time is unknown. MOB reports if FOB chooses to have involvement, visits will be held at [facility] home. MOB reports [place] [facility] [place] moving in with another woman. MOB reports uncertainty about some of FOBs life choices, so in the foreseeable future MOB has set expectation with FOB that FOB has to visit at [facility] home. [place] is the second child for MOB and FOB together. MINOR CHILDREN: Maira Wu, born 08/2002, father is Louis Masterson, pays child support, and is in process of attaining custody of this child; MOB reports this is a mutually agreed upon change, as Maira is a teenager, has had some acting out issues, and MOB feels at this juncture Maira needs a consistent father figure. MOB will still have regular visitation. Gordo Wu, born 03/2008, father is current FOB Blayne Ross. Mary Anne Wise, born 05/2015, father is Garland Wise who was deported back to [place] when Mary Anne was a year old. Prem Wu, born [birth year]18, FOB Blayne Ross. Medical History: MOB is G5, P3 to 4 after delivering Prem. MOB with late care starting at 18 weeks gestation. MOB admits that was uncertain about at first, and FOB was encouraging termination. MOB reports decided to keep and parent , and once started care was able to maintain appointments. Infant born at 36 weeks gestation, via primary caesarian section. Infant weighed 7 pounds 7 ounces at . Apgars 8 and 9 at 1 and 5 minutes of life. Educational Status: MOB graduated high school. No reported issues with reading, writing, or learning comprehension. Financial Status: MOB works at [employer], working from home. MOB will take 6 weeks of unpaid maternity leave. MOB reports to have money saved back from tax return to cover the maternity leave. Supplies: MOB reports to have car seat, crib, rock-n-play, clothing, diapers, wipes, bottles, and some formula to get started. Childcare/Caregiver(s): MOB plans to be primary caregiver. MOB knows about [facility] day care providers and has used for Mary Anne in the past. Transportation: Report to have reliable transportation. Programs/Agencies Involved: MOB plans Dr. Beth Ziegler for pediatric follow up. MOB has medical and food assistance through [employer]. Active with [facility]. Denies other agency involvement. Children Services/Legal Issues: MOB denies any past or present involvement with children services. No reports of any legal issues for MOB. Note, record indicates current ISHAAN has a history of incarceration for assault, spending 8 years in retirement. MOB denies there was ever any domestic violence issues with ISHAAN, and the assault charge was outside of MOB and FOBs relationship together. Behavioral Health Issues: MOB reports history of depression after Mary Anne was born. MOB reports cried all of the time and was not sure why. MOB admits to high levels of stress at the beginning of the . MOB reports started Zoloft, that this has been helping, and plans to stay on this in the period. MOB denies any history, or during this or at present time, of any suicidal ideation, plans, or intent. MOB reports has tried counseling in the past, but did not care for this. MOB admits to history of marijuana use, socially, admitting this has helped MOB when under stress. MOB reports stopped using when started care. MOB reports last use was in May 2017. MOB denies intent to use again in the future. MOB denies history of any other illicit drug use history, including heroin, cocaine, methamphetamines. MOB denies tobacco use. Denies any alcohol use or abuse issues. MOB had a positive drug screen on 05-30-17; no other testing noted. Baby's urine drug screen is negative at delivery. Meconium is pending. Family/Social Stressors: MOB reports a year ago Leslie mejia was deported back to [place]. MOB reports this was hard for MOB as MOB had been in an 8 year relationship with this man. MOB reports about 4-5 months after Garland left, MOB jumped back into a relationship with current FOB. MOB admits much stress this , related to coping with FOBs choice to leave the relationship and the children in May. MOB reports since baby has delivered, MOB feels a peace inside, happy to have the baby and feeling firm in that it is FOBs loss if FOB chooses not to be involved with the children. MOB reports in the process of transferring custody of oldest son Micheal mejia. MOB reports will still have contact and visitation, but day to day and school issues will be managed by Micheal mejia. MOB reports since coming to this decision has also felt a release of stress. Support Systems: MOB reports MOBs mother is currently staying with MOB for added support. MOB reports to see her sister daily, and that the sister is a strong support. MOB reports to have good friends as well. Depression/Shaken Baby/Safe Sleeping: MOB able to give appropriate responses on shaken baby and safe sleeping. MOB listened to education on depression, anxiety, and risk for such. MOB reports intent to stay on Zoloft, to feel happy at this time and to feel a connection to [facility]. ASSESSMENT: MOB reports to feel happy right now, on a scale of 1-10 a 10 (happiest) and for anxiety a 1 (lowest level of anxiety). MOB had an [facility] Depression screening done prenatally in May 2017 showing a score of 26. At time of assessment MOB was rescreened by this medical writer and the score is significantly lower with a score of 3 (see attached link for assessment). MOB able to voice intent to maintain boundaries as far as FOB interactions with the children, seeming to have appropriate boundaries, as well as recognizes importance of consistency for the children. MOB reports to have needed baby supplies, to have support at home going, and intent to stay on Zoloft in the period. MOB denies any other needs for home going, but accepted information and resources offered. MOB thanked social sciences department chair for stopping by. MOB also accepted, without issue, social work education that should babys meconium drug screen come back positive for drugs that children services would have to be called and what to likely expect. MOB denied question or concerns with this. MOB pleasant, cooperative, non-defensive, talkative, bright affect, and appropriate mood. PLAN: MOB and to discharge home when medically ready. MOB has been given depression packet including some online supports. Has been given list of counseling options. Has been given packet of community resources for [facility]. No other services requested or indicated. -RUBY Espinoza, MANAGER HOTEL
[2017-10-19 13:53] VITALS: BP 124/82; PULSE 78; RESP 18; TEMP 36.5; O2SAT 96
--- NOTE | 2017-10-19 18:54 | PCM.PN.OB ---
Patient Problems: Active and Suspected Problems 36 weeks gestation of (Acute) Breech presentation (Acute) Chronic hypertension with superimposed preeclampsia (Acute) Sterilization (Acute) Subjective: Natty is sore today. She has been out of bed, voids without difficulty. Passing flatus. Tolerates regular diet. No headache or vision changes. Objective: AVSS - Physical Exam General: Alert, Oriented x3, Cooperative, No apparent distress HEENT: Atraumatic, Normocephalic Lungs: Clear to auscultation, Normal air movement Cardiovascular: Regular rate, Regular Rhythm, Normal S1, Normal S2 Abdomen: Bowel Sounds Present, Soft, Non Tender, Non-Distended, Obese, - - Fundus firm and nontender at umbilicus, incisional dressing c/d/i Extremities: No edema, No Calf Tenderness Neurological: Neuro grossly intact Psych/Mental Status: Normal Affect, Appropriate, Alert and oriented to time, place, person, mood and affect Vital Signs Temp Pulse Resp BP Pulse Ox 97.7 F L 78 18 124/82 H 96 10/19/17 13:53 10/19/17 13:53 10/19/17 13:53 10/19/17 13:53 10/19/17 13:53 Oxygen Delivery Method Room Air Weight: 118.5 kg Body Mass Index (BMI) 42.1 Intake and Output for Last 24 Hours 10/17/17 10/18/17 10/19/17 23:59 23:59 23:59 Intake Total 5622 / 5622 2966 / 2966 Output Total 2700 / 2700 3600 / 3600 600 / 600 Balance 2922 / 2922 -634 / -634 -600 / -600 Medical Necessity - Tobacco Use Smoking Status: Former smoker Assessment/Plan Active and Suspected Problems 36 weeks gestation of (Acute) Breech presentation (Acute) Chronic hypertension with superimposed preeclampsia (Acute) Sterilization (Acute) 32yo POD#2 s/p PLTCS with BTL with chronic HTN, superimposed preeclampsia. -Rh positive, Rubella immune -BPs controlled with Labetalol 100mg tid -Will continue Zoloft -Routine postop care
[2017-10-19 20:35] VITALS: BP 140/76; PULSE 82; RESP 18; TEMP 36.9; O2SAT 96
[2017-10-19] MEDS: Ibuprofen 400 MG Tablet 800 MG PO (22:06)
[2017-10-20] VITALS (9 sets, daily range): BP systolic 130–181; BP diastolic 61–97; PULSE 75–89; RESP 16–18; TEMP 36.3–36.7; O2SAT 97–98
[2017-10-20] MEDS: oxyCODONE 5 MG Tablet PO ×6 (00:33→23:17)
[2017-10-20] MEDS: Labetalol 100 MG Tablet PO ×4 (06:16→22:06)
[2017-10-20] MEDS: Ibuprofen 400 MG Tablet 800 MG PO ×2 (06:23→19:53)
--- NOTE | 2017-10-20 08:23 | PCM.PN.OB ---
Patient Problems: Active and Suspected Problems 36 weeks gestation of (Acute) Breech presentation (Acute) Chronic hypertension with superimposed preeclampsia (Acute) Sterilization (Acute) Subjective: Natty is sore, pain is improved from yesterday however. No complaints. Objective: AVSS - Physical Exam General: Alert, Oriented x3, Cooperative, No apparent distress HEENT: Atraumatic, Normocephalic Lungs: Clear to auscultation, Normal air movement Cardiovascular: Regular rate, Regular Rhythm Abdomen: Bowel Sounds Present, Soft, Non Tender, Non-Distended, - - Fundus firm and nontender, incision dressing c/d/i Extremities: No edema, No Calf Tenderness Neurological: Neuro grossly intact Psych/Mental Status: Normal Affect, Appropriate, Alert and oriented to time, place, person, mood and affect Vital Signs Temp Pulse Resp BP Pulse Ox 97.3 F L 75 18 130/72 H 97 10/20/17 08:05 10/20/17 08:05 10/20/17 08:05 10/20/17 08:05 10/20/17 08:05 Oxygen Delivery Method Room Air Weight: 118.5 kg Body Mass Index (BMI) 42.1 Intake and Output for Last 24 Hours 10/18/17 10/19/17 10/20/17 23:59 23:59 23:59 Intake Total 2966 / 2966 Output Total 3600 / 3600 600 / 600 Balance -634 / -634 -600 / -600 Medical Necessity - Tobacco Use Smoking Status: Former smoker Assessment/Plan Active and Suspected Problems 36 weeks gestation of (Acute) Breech presentation (Acute) Chronic hypertension with superimposed preeclampsia (Acute) Sterilization (Acute) 32yo POD#3 s/p PLTCS with BTL with chronic HTN, superimposed preeclampsia with severe features. -Rh positive, Rubella immune -Will continue Zoloft, Labetalol -Routine postop care -d/c home later today
--- NOTE | 2017-10-20 08:26 | DCINST_ITS ---
Discharge Diet: No Restrictions Discharge Activity: Return to Normal Activity, May not drive while taking narcotic pain medications., May Shower, - - No tub bath May resume sexual activity in: 6 weeks Lifting Restrictions: 10 lb Call your doctor if your incision/area has: Continuous Slow Oozing, Sudden Increased Bleeding, Increased Pain/ Swelling, Increased Redness Call your doctor if you observe: Fever of 101 or Higher, Inability to urinate, Inability to have a bowel movement, Using more than one pad per hour, Shortness of breath, Chest pain, Calf discomfort, Uncontrolled pain Suture Line Care: Avoid Pulling/Pushing Remove Dressing in (days):: 2 - on Monday10/22/17 Cleanse incision/area with: Soap & Water Additional Instructions: If you experience any of the following, contact your healthcare provider. * Bleeding that soaks a pad every hour for 2 hours * Fever 100.4 or higher * Unrelieved incision or abdominal pain * Swelling, redness, discharge or bleeding from your incision or episiotomy site * Your incision begins to separate * Problems urinating (including inability to urinate or burning while urinating) . * Visual changes * Severe headache * Flu-like symptoms * Pain or redness in one of both of your breasts * Pain, warmth, tenderness or swelling in your legs, especially the calf area * Frequent nausea and vomiting * Symptoms of depression or anxiety If you experience any of the following, call 911 or go to the nearest Emergency Room. * Chest pain * Problems breathing * Seizure activity * Partial or complete paralysis of a body part, slurred speech, weakness or drooping of the face, or a sudden inability to walk or hold your balance Allergies/Adverse Reactions: Allergies amoxicillin [Amoxicillin] Allergy (Verified 10/12/17 15:45) Rash erythromycin base [Erythromycin Base] Allergy (Verified 10/12/17 15:45) Rash Penicillins Allergy (Verified 10/12/17 15:45) Rash Medications to take at Discharge Pnv No.122/Iron/Folic Acid [ Multi Tablet] 1 each PO DAILY 09/11/17 Labetalol [Trandate ([place])] 100 mg PO TID tablet 10/19/17 Naproxen 1 - 2 tab PO BID PRN #30 tab 10/19/17 Oxycodone [Oxyir] 1 - 2 tab PO Q4H PRN PRN 3 Days #28 tablet 10/19/17 Senna/Docusate Sodium [Senokot-S] 1 - 2 tab PO DAILY PRN #60 tablet 10/19/17 Sertraline HCl [Zoloft] 75 mg PO DAILY #30 tab 10/19/17 The following prescriptions were given: Oxycodone [Oxyir] 1 - 2 tab PO Q4H PRN PRN 3 Days #28 tablet PRN Reason: Mod-Severe Pain (-04/11) Sertraline HCl [Zoloft] 75 mg PO DAILY #30 tab Naproxen 1 - 2 tab PO BID PRN #30 tab PRN Reason: Pain Orders to be completed after discharge: Electric breast pump Time Frame: 1 Year, Location: None Selected Follow-Up: Call to make an appointment with your doctor for an incision check in 1-2 weeks. You will also need a 6 week post- follow up appointment. Please Follow Up With: Deysi Arredondo MD When: 1 weeks Primary Care Physician: Care Physician,No Primary [Primary Care Provider] -
--- NOTE | 2017-10-20 08:26 | PCM.DC.SUM ---
<Arnulfo,Summer - Last Filed: 10/20/17 08:26> Discharge Date and Diagnosis - Problem List Patient Problems: Active and Suspected Problems delivery delivered (Acute) 36 weeks gestation of (Acute) Breech presentation (Acute) Chronic hypertension with superimposed preeclampsia (Acute) Sterilization (Acute) Date of Admission: 10/17/17 Date of Discharge: 10/20/17 - Primary Discharge Diagnosis Active and Suspected Problems delivery delivered (Acute) 36 weeks gestation of (Acute) Breech presentation (Acute) Chronic hypertension with superimposed preeclampsia (Acute) Sterilization (Acute) Hospital Course and Treatment Operations: - - Low transverse section, bilateral tubal ligation Summary of Care Provided: The patient is a 32 year old F 4 para 3 admitted at 36 5/7 weeks gestational age with chronic hypertension and superimposed preeclampsia with severe features with breech presentation. She underwent an uncomplicated section with bilateral tubal ligation and 24 hours of magnesium seizure prophylaxis. Her blood pressures improved and her BPs were controlled on Labetalol PO. She was out of bed, tolerating a regular diet and bottlefeeding. Natty was discharged to home on post-op day #3. Discharge Diet: No Restrictions Discharge Activity: Return to Normal Activity, May not drive while taking narcotic pain medications., May Shower, - - No tub bath May resume sexual activity in: 6 weeks Call your doctor if your incision/area has: Continuous Slow Oozing, Sudden Increased Bleeding, Increased Pain/ Swelling, Increased Redness Call your doctor if you observe: Fever of 101 or Higher, Inability to urinate, Inability to have a bowel movement, Using more than one pad per hour, Shortness of breath, Chest pain, Calf discomfort, Uncontrolled pain Suture Line Care: Avoid Pulling/Pushing Remove Dressing in (days):: 2 - on Monday10/22/17 Cleanse incision/area with: Soap & Water Home Medications: Medications to take at Discharge Pnv No.122/Iron/Folic Acid [ Multi Tablet] 1 each PO DAILY 09/11/17 Labetalol [Trandate ([place])] 100 mg PO TID tablet 10/19/17 Naproxen 1 - 2 tab PO BID PRN #30 tab 10/19/17 Oxycodone [Oxyir] 1 - 2 tab PO Q4H PRN PRN 3 Days #28 tablet 10/19/17 Senna/Docusate Sodium [Senokot-S] 1 - 2 tab PO DAILY PRN #60 tablet 10/19/17 Sertraline HCl [Zoloft] 75 mg PO DAILY #30 tab 10/19/17 Nitrofurantoin Monohyd/M-Cryst [Macrobid 100 mg Capsule] 100 mg PO BID #14 cap 10/21/17 Following Prescrptions Were Given to Patient: Oxycodone [Oxyir] 1 - 2 tab PO Q4H PRN PRN 3 Days #28 tablet PRN Reason: Mod-Severe Pain (-04/11) Sertraline HCl [Zoloft] 75 mg PO DAILY #30 tab Naproxen 1 - 2 tab PO BID PRN #30 tab PRN Reason: Pain Nitrofurantoin Monohyd/M-Cryst [Macrobid 100 mg Capsule] 100 mg PO BID #14 cap Other Amb Orders: Electric breast pump Time Frame: 1 Year, Location: None Selected Primary Care Physician: Care Physician,No Primary [Primary Care Provider] - Please Follow Up With: Deysi Arredondo MD When: 1 weeks Medical Necessity - Tobacco Use Smoking Status: Former smoker Meaningful Use Info Meaningful Use Diagnoses (Choose all that apply): None applicable <Alethea Okeefe - Last Filed: 10/21/17 08:09> Discharge Date and Diagnosis Date of Discharge: 10/21/17 - Primary Discharge Diagnosis Active and Suspected Problems delivery delivered (Acute) 36 weeks gestation of (Acute) Breech presentation (Acute) Chronic hypertension with superimposed preeclampsia (Acute) Sterilization (Acute) Hospital Course and Treatment Summary of Care Provided: ADDENDUM: Natty with increased BP last night and declined discharge as didn't feel comfortable. Labetolol inc to 200 mg po tid. BPs this am : 130-155/61-67 Headache evening of POD#3 , resolved Dysuria, voiding small amounts: pt with catheter in place for surgery. UA , C and S sent. Rare bacteria. Pt on Macrobid 100 mg po bid until culture results received. Advised not likely a UTI given rare bacteria. Will d/c abx prn when culture returns Discharged home POD#4 Meaningful Use Info Meaningful Use Diagnoses (Choose all that apply): None applicable
[2017-10-20] MEDS: Sertraline 50 MG Tablet 75 MG PO (09:55)
[2017-10-20] MEDS: Prenatal Vits Tablet 1 TABLET PO (09:55)
[2017-10-20] MEDS: Senna/Docusate Sodium 1 Tablet PO (09:55)
--- NOTE | 2017-10-20 23:40 | NURSING ---
Late entry: at 2004- Dr. Okeefe updated on blood pressure checks at 1900 and 1945, patient still c/o headache and would like to stay the night to be observed. Dr. Okeefe okay with this plan, discharge order to be cancelled.
--- NOTE | 2017-10-20 23:41 | NURSING ---
2790 - Dr. Okeefe updated that patient c/o abdominal pain with urination and difficulty starting to urinate, increased frequency of urination. Pt denies urgency. Orders received for UAC and urine culture, macrobid. Dr. Okeefe requested this RN to offer pt ambien. Pt updated on this plan and declines taking ambien at this time, states she has had no problems sleeping.
[2017-10-21 00:19] LABS: Mucous, Urine 0 SEEN /hpf (<or=2+)
[2017-10-21 00:21] LABS: Glucose, Dipstick Normal (Normal); Ketone-Dipstick Negative (Negative); Leukocyte Esterase-Dipstick 100 /ul (Negative); Nitrite-Dipstick Negative (Negative); Occult Blood-Urine 250 /ul (Negative); Protein-Dipstick 30 mg/dl (Negative); Specific Gravity, Urine 1.015 (1.002-1.030); Urine Bilirubin Dipstick Negative (Negative); Urine Urobilinogen Normal (Normal)
[2017-10-21 00:49] LABS: Color, Urine Yellow (Yellow); Urine Clarity Sl Cloudy (Clear)
[2017-10-21 00:52] LABS: Bacteria RARE /hpf (None Seen); Red Blood Cells-Urine 10-25 SEEN /hpf (0-5); Squamous Epithelial Cells - UA 5-10 SEEN /hpf (5-10); White Blood Cells 0-5 SEEN /hpf (0-5)
[2017-10-21 01:40] VITALS: BP 128/67; PULSE 81; RESP 18; TEMP 35.9
[2017-10-21] MEDS: Nitrofurantoin Macrocrystals 100 MG Capsule PO ×2 (02:16→10:44)
[2017-10-21] MEDS: oxyCODONE 5 MG Tablet PO ×2 (04:29→10:43)
[2017-10-21] MEDS: Labetalol 100 MG Tablet PO (06:14)
[2017-10-21] MEDS: Ibuprofen 400 MG Tablet 800 MG PO (06:36)
--- NOTE | 2017-10-21 08:10 | PCM.PN.OB ---
Patient Problems: Active and Suspected Problems delivery delivered (Acute) 36 weeks gestation of (Acute) Breech presentation (Acute) Chronic hypertension with superimposed preeclampsia (Acute) Sterilization (Acute) Subjective: POD#4 Primary C/S and BTO. Breech presentation, labor. Doing better today. Plans to bottle feed. Asking when she can leave today. ESPINOZA is gone. Burning with urination, improved and is on macrobid for this while culture pending. On Labetalol and is asking what dose to take. (200 mg po tid) Has f/u appt with Dr. Dann Emanuel in approx 1 wk for incision and BP check. Pain control adequate. - Physical Exam General: Alert, Oriented x3, Cooperative, No apparent distress HEENT: Atraumatic, EOMI Neck: Supple Abdomen: Soft, Obese - Fundus approx at umbilicus, tender c/w postop status. Skin: Incision - CDI. Mepilex dressing removed. Cloth tucked beneath pannus to keep dry. Neurological: Cranial nerves II-XII grossly intact Psych/Mental Status: Normal Affect Vital Signs Temp Pulse Resp BP Pulse Ox 96.7 F L 81 18 128/67 H 97 10/21/17 01:40 10/21/17 01:40 10/21/17 01:40 10/21/17 01:40 10/20/17 19:55 Oxygen Delivery Method Room Air Weight: 118.5 kg Body Mass Index (BMI) 42.1 Intake and Output for Last 24 Hours 10/19/17 10/20/17 10/21/17 23:59 23:59 23:59 Output Total 600 / 600 Balance -600 / -600 Laboratory Tests Past 24 Hrs 10/21/17 00:00 Urine Color Yellow Urine Clarity Sl Cloudy Urine pH 6.0 Ur Specific [place] 1.015 Urine Protein 30 H Urine Glucose (UA) Normal Urine Ketones Negative Urine Occult Blood 250 H Urine Nitrite Negative Urine Bilirubin Negative Urine Urobilinogen Normal Ur Leukocyte Esterase 100 H Urine RBC 10-25 SEEN Urine WBC 0-5 SEEN Ur Squamous Epith Cells 5-10 SEEN Urine Bacteria RARE Urine Mucus 0 SEEN Medical Necessity - Tobacco Use Smoking Status: Former smoker Assessment/Plan Active and Suspected Problems delivery delivered (Acute) 36 weeks gestation of (Acute) Breech presentation (Acute) Chronic hypertension with superimposed preeclampsia (Acute) Sterilization (Acute) POD#4 Primary C/S breech. BTO Preeclampsia. Stable. dischg home today. RTO in 1 wk for postop check, BP check. Labetolol 200 mg po tid. Macrobid 100 mg po bid for UTI. Will notify of culture results as available. Dischg instructions given.
[2017-10-21 08:44] VITALS: BP 161/86; PULSE 78; RESP 16; TEMP 36.4
[2017-10-21] MEDS: Prenatal Vits Tablet 1 TABLET PO (10:43)
[2017-10-21] MEDS: Sertraline 50 MG Tablet 75 MG PO (10:57)
[2017-10-21 13:00] VITALS: BP 173/95; PULSE 89; RESP 16; TEMP 36.6
[2017-10-21 13:50] VITALS: BP 173/95; PULSE 89; RESP 16; TEMP 36.6
--- NOTE | 2017-10-21 14:30 | NURSING ---
1350 States she wants to go home, is able to care for herself and her baby and feels good. Discharged to home with baby in wheelchair to car.
[2017-10-22 06:33] LABS: Pathology Specimen OB SEE PATHOLOGY REPORT
[2017-10-23 14:40] LABS: Pathology Specimen OB SEE PATHOLOGY REPORT
== END 2017-10-21 13:50 | disposition home or self-care (01) | DRG 370 ==
LOC: WPOUT 14:28
PROVIDERS: Obstetrics & Gynecology; Admitting Provider Obstetrics & Gynecology; Visit Provider Obstetrics & Gynecology
DX: O32.1XX0 Maternal care for breech presentation, not applicable or unspecified (principal); O75.3 Other infection during labor; N39.0 Urinary tract infection, site not specified; O99.324 Drug use complicating childbirth; O60.14X0 Preterm labor third trimester with preterm delivery third trimester, not applicable or unspecified; O11.4 Pre-existing hypertension with pre-eclampsia, complicating childbirth; E66.01 Morbid (severe) obesity due to excess calories; O99.214 Obesity complicating childbirth; Z3A.36 36 weeks gestation of pregnancy; Z37.0 Single live birth; Z87.891 Personal history of nicotine dependence; Z68.41 Body mass index [BMI] 40.0-44.9, adult; Z30.2 Encounter for sterilization; Z86.32 Personal history of gestational diabetes; F12.90 Cannabis use, unspecified, uncomplicated; O99.343 Other mental disorders complicating pregnancy, third trimester; F32.9 Major depressive disorder, single episode, unspecified; F41.9 Anxiety disorder, unspecified
CPT/HCPCS: 80053; 81001; 82570; 84156; 84550; 85027; 86850; 86900; 87086; 87088; 88302; 88307; 94762; 99218; J7120; A4216; G0378; J2405